=== PATIENT | female | born 1985 | race Caucasian/White ===

== ENCOUNTER 2017-07-29 16:18 | Emergency (ER) | payer BC, OTHER ==
[2017-07-29] MEDS ORDERED: NA CHLORIDE 0.9% 1,000 ML ONE (17:22)
[2017-07-29] MEDS ORDERED: FAMOTIDINE 20 MG TAB ONE (17:22)
[2017-07-29] MEDS ORDERED: MORPHINE 4 MG/ML SYR ONE (17:22)
[2017-07-29] MEDS ORDERED: ONDANSETRON 4 MG/2 ML VIAL ONE ×2 (17:23→19:02)
[2017-07-29 17:44] LABS: Absolute Lymphocytes (CBC) 1.5 K/uL (0.7-4.9); Absolute Monocytes 0.4 K/uL (0.1-1.3); Absolute Neutrophil 8.8 K/uL (1.8-8.0); Basophils % 0.2 % (0-1.3); Eosinophils % 1.5 % (0-4.4); Lymphocytes % 13.5 % (15.3-44.8); MCH 29.7 pg (27.0-35.0); MCV 88.6 fL (80-100); MPV 8.8 fL (7.6-11.3); Monocytes % 3.9 % (3.3-12.3); RBC Red Blood Cell Count 5.42 M/uL (3.86-4.86)
[2017-07-29 17:56] LABS: Glucose Level 91 mg/dL (65-120); Lipase 18 U/L (22-51)
[2017-07-29 17:59] LABS: Urine Blood TRACE (NEG); Urine Glucose NEGATIVE (NEG); Urine Protein TRACE (NEG)
[2017-07-29 18:01] LABS: Urine Bacteria <20 /HPF (<20); Urine Culture Reflex Order NOT NEEDED; Urine RBC <5 /HPF (NONE SEEN)
[2017-07-29 18:02] LABS: ALT/SGPT 11 IU/L (10-60); AST/SGOT 13 IU/L (10-42); Albumin 4.3 g/dL (3.2-5.5); Alkaline Phosphatase 68 IU/L (42-121); BUN Blood Urea Nitrogen 7 mg/dL (6-20); Bilirubin Direct 0.2 mg/dL (0-0.2); Bilirubin Total 1.6 mg/dL (0.3-1.2); Protein, Total 7.5 g/dL (6.0-8.3)
[2017-07-29 18:05] LABS: Bicarbonate 25 mEq/L (21-31); Sodium Level 137 mEq/L (135-145)
[2017-07-29 18:08] LABS: Potassium 2.9 mEq/L (3.6-5.0)
[2017-07-29] MEDS ORDERED: NS KCL 20MEQ 1,000 ML IV ONE (18:13)
[2017-07-29] MEDS ORDERED: POTASSIUM CL SA 10 MEQ TAB PO ONE (18:13)
--- NOTE | 2017-07-29 18:41 | RAD REPORT ---
EXAM DESCRIPTION: CT - Abdomen Pelvis W Contrast - 07/29/2017 6:26 pm CLINICAL HISTORY: Abdominal pain. Nausea and vomiting since Thursday COMPARISON: None. TECHNIQUE: Computed axial tomography of the abdomen and pelvis was obtained. 100 cc Isovue-300 is ad ministered intravenously. Oral contrast was given. All CT scans are performed using dose optimization technique as appropriate and may include automated exposure control or mA/KV adjustment according to patient size. FINDINGS: The liver, spleen, pancreas, adrenals and kidneys appear unremarkable. The appendix is normal caliber. There is no evidence of diverticulitis Fluid is present within nondilated large and small bowel. Air is present within the vagina. A hysterectomy has been performed IMPRESSION: Fluid within nondilated large and small bowel bowel may be secondary to an enteritis. Air within the vagina often is insignificant. It can be associated with infection and should be corre lated clinically
--- NOTE | 2017-07-29 18:59 | EDPHYS ---
Physician Documentation [facility] Name: Cheryl Pozo Age: 32 yrs Sex: Female : 1985 Arrival Date: 07/29/2017 Time: 16:22 Bed 7 Private MD: None, None ED Physician Shahab Calderon HPI: 07/29 18:42 This 32 yrs old Female presents to ER via Ambulatory with complaints of kdr Vomiting/Diarrhea, Abdominal Pain. 18:42 The patient presents to the emergency department with nausea, that is moderate, kdr vomiting, that is intermittent, diarrhea, that is intermittent, abdominal pain, of the epigastric area, right upper quadrant and left upper quadrant, described as achy, burning, crampy, intermittent, vague,\E\ waxing and waning, and does not radiate. Onset: The symptoms/episode began/occurred suddenly, Since the weekend some time. The patient did have a steak on Thursday for mothers day but has had n/v/d since then and has been unable to keep her regular medications down. Possible causes: unknown. The symptoms are aggravated by food , The symptoms are alleviated by nothing. Associated signs and symptoms: Pertinent positives: abdominal pain, diarrhea, nausea, vomiting. Severity of symptoms: At their worst the symptoms were moderate severe incapacitating this morning, in the emergency department the symptoms have improved mildly. The patient has not experienced similar symptoms in the past. The patient has not recently seen a physician. 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 - Social history:: Smoking status: Patient uses tobacco products, denies chronic smoking, but will smoke occasionally. ROS: 18:42 Constitutional: Negative for fever, chills, and weight loss, Eyes: Negative for injury, kdr pain, redness, and discharge, ENT: Negative for injury, pain, and discharge, Neck: Negative for injury, pain, and swelling, Cardiovascular: Negative for chest pain, palpitations, and edema, Respiratory: Negative for shortness of breath, cough, wheezing, and pleuritic chest pain, Back: Negative for injury and pain, : Negative for injury, bleeding, discharge, and swelling, MS/Extremity: Negative for injury and deformity, Skin: Negative for injury, rash, and discoloration, Neuro: Negative for headache, weakness, numbness, tingling, and seizure activity. Psych: Negative for depression, anxiety, suicide ideation, homicidal ideation, and hallucinations, Allergy/Immunology: Negative for hives, rash, and allergies, Endocrine: Negative for neck swelling, polydipsia, polyuria, polyphagia, and marked weight changes, Hematologic/Lymphatic: Negative for swollen nodes, abnormal bleeding, and unusual bruising. 18:42 Abdomen/GI: Positive for abdominal pain, nausea, vomiting, and diarrhea, abdominal cramps, Negative for constipation, abdominal distension, anorexia, dysphagia, hematemesis, black/tarry stool, rectal pain, rectal bleeding, bowel incontinence. Exam: 18:42 Constitutional: This is a well developed, well nourished patient who is awake, alert, kdr and in no acute distress. Head/Face: Normocephalic, atraumatic. Eyes: Pupils equal round and reactive to light, extra-ocular motions intact. Lids and lashes normal. Conjunctiva and sclera are non-icteric and not injected. Cornea within normal limits. Periorbital areas with no swelling, redness, or edema. Neck: Trachea midline, no thyromegaly or masses palpated, and no cervical lymphadenopathy. Supple, full range of motion without nuchal rigidity, or vertebral point tenderness. No Meningismus. Chest/axilla: Normal chest wall appearance and motion. Nontender with no deformity. No lesions are appreciated. Cardiovascular: Regular rate and rhythm with a normal S1 and S2. No gallops, murmurs, or rubs. Normal PMI, no JVD. No pulse deficits. Respiratory: Lungs have equal breath sounds bilaterally, clear to auscultation and percussion. No rales, rhonchi or wheezes noted. No increased work of breathing, no retractions or nasal flaring. Back: No spinal tenderness. No costovertebral tenderness. Full range of motion. Skin: Warm, dry with normal turgor. Normal color with no rashes, no lesions, and no evidence of cellulitis. MS/ Extremity: Pulses equal, no cyanosis. Neurovascular intact. Full, normal range of motion. Neuro: Awake and alert, GCS 15, oriented to person, place, time, and situation. Cranial nerves II-XII grossly intact. Motor strength 5/5 in all extremities. Sensory grossly intact. Cerebellar exam normal. Normal gait. Psych: Awake, alert, with orientation to person, place and time. Behavior, mood, and affect are within normal limits. Vital Signs: 16:45 BP 97 / 79; Pulse 132; Resp 21; Temp 97.8; Pulse Ox 98% on R/A; Weight 63.5 kg; Height aj 5 ft. 3 in. (160.02 cm); Pain 8/10; 18:00 BP 119 / 86; Pulse 88; Resp 16; Pulse Ox 100% ; jl7 18:30 BP 119 / 85; Pulse 90; Resp 16; Pulse Ox 99% ; jl7 18:40 BP 127 / 85; Pulse 85; Resp 16; Pulse Ox 100% ; jl7 19:32 Pulse 100; Resp 18; Pulse Ox 100% on R/A; Pain 0/10; mg2 16:45 Body Mass Index 24.80 (63.50 kg, 160.02 cm) aj MDM: 18:59 Patient medically screened. kdr 19:03 Data reviewed: vital signs, nurses notes, lab test result(s), radiologic studies. kdr Counseling: I had a detailed discussion with the patient and/or guardian regarding: the historical points, exam findings, and any diagnostic results supporting the discharge/admit diagnosis, lab results, radiology results, the need for outpatient follow up. ED course: The patient was feeling much better and able to keep PO fluids down. 07/29 17:09 Order name: Basic Metabolic Panel; Complete Time: 18:52 kdr 07/29 17:09 Order name: CBC with Diff; Complete Time: 18:52 kdr 07/29 17:09 Order name: Creatinine for Radiology; Complete Time: 18:52 kdr 07/29 17:09 Order name: Hepatic Function; Complete Time: 18:52 kdr 07/29 17:09 Order name: Lipase; Complete Time: 18:52 kdr 07/29 17:09 Order name: Urine Microscopic Only; Complete Time: 18:52 kdr 07/29 17:09 Order name: CT Abd/Pelvis - W/Contrast; Complete Time: 18:52 kdr 07/29 17:46 Order name: Urine Dipstick--Ancillary (enter results); Complete Time: 18:52 em1 07/29 17:46 Order name: Urine --Ancillary (enter results); Complete Time: 18:52 em1 07/29 17:09 Order name: IV Saline Lock; Complete Time: 17:46 kdr 07/29 17:09 Order name: Labs collected and sent; Complete Time: 17:46 kdr 07/29 17:09 Order name: Urine Dipstick-Ancillary (obtain specimen); Complete Time: 17:44 kdr 07/29 17:09 Order name: Misc. Order: Few ice chips; Complete Time: 17:46 kdr Administered Medications: 17:35 Drug: Pepcid 20 mg Route: PO; jl7 18:39 Follow up: Response: No adverse reaction jl7 17:36 Drug: NS 0.9% 1000 ml Route: IV; Rate: 1 bolus; Site: right antecubital; jl7 18:20 Follow up: Response: No adverse reaction; IV Status: Completed infusion jl7 17:36 Drug: Zofran 4 mg Route: IVP; Site: right antecubital; jl7 17:45 Follow up: Response: No adverse reaction; Nausea is decreased jl7 17:38 Drug: morphine 2 mg Route: IVP; Site: right antecubital; jl7 18:39 Follow up: Response: No adverse reaction; Pain is decreased jl7 17:44 CANCELLED (Other Intervention Used): Pepcid 20 mg IVP once jl7 18:22 Not Given (Other Intervention Used): NS 0.9% 1000 ml IV at 1 bolus Per protocol; 1000 jl7 mL bolus 18:22 Drug: Potassium Chloride 40 mEq Route: PO; jl7 18:39 Follow up: Response: No adverse reaction jl7 18:30 Drug: Potassium Chloride 20 mEq Route: IV; Rate: calculated rate; Site: right jl7 antecubital; 20:01 Follow up: Response: No adverse reaction; IV Status: Completed infusion mg2 19:08 Drug: LevaQUIN 500 mg Route: PO; mg2 20:00 Follow up: Response: No adverse reaction mg2 19:08 Drug: Zofran 4 mg Route: IVP; Site: right antecubital; mg2 19:59 Follow up: Response: No adverse reaction; Nausea is decreased mg2 19:09 Drug: LoMOTIL 2 tabs Route: PO; mg2 20:00 Follow up: Response: No adverse reaction; Other; diarrhea decreased mg2 19:09 Drug: Flagyl 500 mg Route: PO; mg2 20:00 Follow up: Response: No adverse reaction mg2 Disposition: 07/29/17 18:59 Discharged to Home. Impression: Diarrhea, unspecified, Vomiting, Abdominal and pelvic pain, Hypokalemia. - Condition is Stable. - Discharge Instructions: Potassium Content of Foods, Nausea and Vomiting, Liob-bq-Occx, Abdominal Pain, Adult, Itjl-bt-Doci, Hypokalemia. - Prescriptions for Bentyl 20 mg Oral Tablet - take 1 tablet by ORAL route every 6 hours As needed; 20 tablet. Cipro 500 mg Oral Tablet - take 1 tablet by ORAL route every 12 hours for 10 days; 20 tablet. Flagyl 500 mg Oral Tablet - take 1 tablet by ORAL route every 6 hours for 10 days; 40 tablet. Pepcid 20 mg Oral Tablet - take 1 tablet by ORAL route every 12 hours for 5 days; 10 tablet. Xanax 1 mg Oral Tablet - take 1 tablet by ORAL route every 8 hours As needed; 6 tablet. Tramadol 50 mg Oral Tablet - take 1 tablet by ORAL route every 8 hours as needed; 12 tablet. Lomotil 2.5- 0.025 mg Oral Tablet - take 1 tablet by ORAL route every 6 hours As needed; 20 tablet. - Medication Reconciliation Form, Thank You Letter, Antibiotic Education, Prescription Opioid Use form. - Follow up: Private Physician; When: 2 - 3 days; Reason: If symptoms return, Further diagnostic work-up, Recheck today's complaints, Continuance of care, Re-evaluation by your physician. - Problem is new. - Symptoms have improved. Signatures: Dispatcher [employer] Annie Bishop RN Shahab Grossman MD MD kdr Leal, Jahala, RN RN jl7 Arden Bonds RN RN mg2 Corrections: (The following items were deleted from the chart) 17:44 17:09 Pepcid 20 mg IVP once ordered. chai jl7 20:02 18:59 07/29/2017 18:59 Discharged to Home. Impression: Diarrhea, unspecified; Vomiting; mg2 Abdominal and pelvic pain; Hypokalemia. Condition is Stable. Forms are Medication Reconciliation Form, Thank You Letter, Antibiotic Education, Prescription Opioid Use. Follow up: Private Physician; When: 2 - 3 days; Reason: If symptoms return, Further diagnostic work-up, Recheck today's complaints, Continuance of care, Re-evaluation by your physician. Problem is new. Symptoms have improved. kdr
--- NOTE | 2017-07-29 18:59 | ER ---
Nurse's Notes [facility] Name: Cheryl Pozo Age: 32 yrs Sex: Female : 1985 Arrival Date: 07/29/2017 Time: 16:22 Bed 7 Private MD: None, None Diagnosis: Diarrhea, unspecified;Vomiting;Abdominal and pelvic pain;Hypokalemia Presentation: 07/29 16:43 Presenting complaint: Patient states: N/V/D since Thursday. Transition of care: patient aj was not received from another setting of care. Onset of symptoms was July 27, 2017. Care prior to arrival: None. 16:43 Method Of Arrival: Ambulatory aj 16:43 Acuity: JOSEPH 2 aj 17:51 Initial Sepsis Screen: Does the patient meet any 2 criteria? No. Patient's initial ae1 sepsis screen is negative. Does the patient have a suspected source of infection? No. Patient's initial sepsis screen is negative. Triage Assessment: 16:45 General: Appears in no apparent distress. uncomfortable, Behavior is calm, cooperative, aj appropriate for age. Pain: Complains of pain in epigastric area Pain currently is 7 out of 10 on a pain scale. Neuro: Level of Consciousness is awake, alert, obeys commands, Oriented to person, place, time, situation, Appropriate for age. Respiratory: Airway is patent Respiratory effort is even, unlabored, Respiratory pattern is regular, symmetrical. GI: Reports upper abdominal pain, diarrhea, nausea, vomiting. Derm: Skin is intact, is healthy with good turgor, Skin is pink, warm \T\ dry. normal. 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 - Social history:: Smoking status: Patient uses tobacco products, denies chronic smoking, but will smoke occasionally. Screenin:50 Abuse screen: Denies threats or abuse. Nutritional screening: No deficits noted. ae1 Tuberculosis screening: No symptoms or risk factors identified. Fall Risk None identified. Assessment: 17:00 Pain: Complains of pain in abdomen. Neuro: Level of Consciousness is awake, alert, ae1 obeys commands, Oriented to person, place, time, situation. Cardiovascular: Heart tones S1 S2 present Patient's skin is warm and dry. Respiratory: Airway is patent Respiratory effort is even, unlabored, Respiratory pattern is regular, symmetrical, Breath sounds are clear bilaterally. GI: Abdomen is round Bowel sounds present X 4 quads. hyperactive in right lower quadrant and left lower quadrant. : No signs and/or symptoms were reported regarding the genitourinary system. EENT: No signs and/or symptoms were reported regarding the EENT system. Derm: Skin is pink, warm \T\ dry. Musculoskeletal: No signs and/or symptoms reported regarding the musculoskeletal system. 17:00 General: Appears in no apparent distress. comfortable, Behavior is calm, cooperative. ae1 17:00 GI: Reports nausea, vomiting. ae1 17:48 Reassessment: Pt finished drinking oral contrast, CT notified. jl7 18:05 Reassessment: Potassium 2.9, provider notified, see MAR for orders. Provider ordered to [facility] notify CT not to wait on oral contrast. CT notified to go ahead and get the pt at this time. 19:32 Reassessment: Patient appears in no apparent distress at this time. Patient and/or mg2 family updated on plan of care and expected duration. Pain level reassessed. Patient is alert, oriented x 3, equal unlabored respirations, skin warm/dry/pink. Vital Signs: 16:45 BP 97 / 79; Pulse 132; Resp 21; Temp 97.8; Pulse Ox 98% on R/A; Weight 63.5 kg; Height aj 5 ft. 3 in. (160.02 cm); Pain 8/10; 18:00 BP 119 / 86; Pulse 88; Resp 16; Pulse Ox 100% ; jl7 18:30 BP 119 / 85; Pulse 90; Resp 16; Pulse Ox 99% ; jl7 18:40 BP 127 / 85; Pulse 85; Resp 16; Pulse Ox 100% ; jl7 19:32 Pulse 100; Resp 18; Pulse Ox 100% on R/A; Pain 0/10; mg2 16:45 Body Mass Index 24.80 (63.50 kg, 160.02 cm) aj ED Course: 16:22 Patient arrived in ED. mr 16:23 None, None is Private Physician. mr 16:43 Triage completed. aj 16:45 Arm band placed on right wrist. Patient placed in an exam room. aj 16:47 Shahab Calderon MD is Attending Physician. kdr 17:00 Bed in low position. Call light in reach. Side rails up X 1. Pulse ox on. NIBP on. Warm ae1 blanket given. 17:00 Initial lab(s) drawn, by me. Inserted saline lock: 20 gauge in right antecubital area, jb1 using aseptic technique. Blood collected. 17:17 Kapil Julien, RN is Primary Nurse. ae1 18:[address] vm2 18:25 CT Abd/Pelvis - W/Contrast In Process Unspecified. EDMS 19:59 No provider procedures requiring assistance completed. IV discontinued, intact, mg2 bleeding controlled, No redness/swelling at site. Pressure dressing applied. Administered Medications: 17:35 Drug: Pepcid 20 mg Route: PO; jl7 18:39 Follow up: Response: No adverse reaction jl7 17:36 Drug: NS 0.9% 1000 ml Route: IV; Rate: 1 bolus; Site: right antecubital; jl7 18:20 Follow up: Response: No adverse reaction; IV Status: Completed infusion jl7 17:36 Drug: Zofran 4 mg Route: IVP; Site: right antecubital; jl7 17:45 Follow up: Response: No adverse reaction; Nausea is decreased jl7 17:38 Drug: morphine 2 mg Route: IVP; Site: right antecubital; jl7 18:39 Follow up: Response: No adverse reaction; Pain is decreased jl7 17:44 CANCELLED (Other Intervention Used): Pepcid 20 mg IVP once jl7 18:22 Not Given (Other Intervention Used): NS 0.9% 1000 ml IV at 1 bolus Per protocol; 1000 jl7 mL bolus 18:22 Drug: Potassium Chloride 40 mEq Route: PO; jl7 18:39 Follow up: Response: No adverse reaction jl7 18:30 Drug: Potassium Chloride 20 mEq Route: IV; Rate: calculated rate; Site: right jl7 antecubital; 20:01 Follow up: Response: No adverse reaction; IV Status: Completed infusion mg2 19:08 Drug: LevaQUIN 500 mg Route: PO; mg2 20:00 Follow up: Response: No adverse reaction mg2 19:08 Drug: Zofran 4 mg Route: IVP; Site: right antecubital; mg2 19:59 Follow up: Response: No adverse reaction; Nausea is decreased mg2 19:09 Drug: LoMOTIL 2 tabs Route: PO; mg2 20:00 Follow up: Response: No adverse reaction; Other; diarrhea decreased mg2 19:09 Drug: Flagyl 500 mg Route: PO; mg2 20:00 Follow up: Response: No adverse reaction mg2 Intake: Outcome: 18:59 Discharge ordered by . kdr 20:01 Discharged to home ambulatory, with family. mg2 20:01 Condition: stable 20:01 Discharge instructions given to patient, family, Instructed on discharge instructions, follow up and referral plans. Demonstrated understanding of instructions, follow-up care, medications, Prescriptions given X 7 20:02 Patient left the ED. mg2 Signatures: Dispatcher [employer] EDMS Bryant Werner jb1 Annie Adams RN RN aj Rittger, Kevin, MD MD kdr Rivera, Maria mr Kapil Julien RN RN ae1 Mirta Braga RN RN jl7 Allison Alicea 2 Arden Bonds, CAROLYN RN mg2 Corrections: (The following items were deleted from the chart) 18:10 17:00 General: Appears in no apparent distress. comfortable, Behavior is calm, ae1 cooperative, ae1 18:45 18:41 Reassessment: brianne decker
[2017-07-29] MEDS ORDERED: metroNIDAZOLE 500 MG TABLET ONE (19:01)
[2017-07-29] MEDS ORDERED: levoFLOXacin 500 MG TAB ONE (19:02)
[2017-07-29] MEDS ORDERED: DIPHENOX/ATROP SULF 1 TAB PO ONE (19:02)
== END 2017-07-29 20:02 | disposition home or self-care (01) ==
LOC: ER 16:18
DX: E87.6 Hypokalemia (principal); R11.10 Vomiting, unspecified; R19.7 Diarrhea, unspecified; F90.9 Attention-deficit hyperactivity disorder, unspecified type; Z72.0 Tobacco use
CPT/HCPCS: 36415; 74177; 80048; 80076; 81003; 81015; 81025; 83690; 85025; 96361; 96365; 96366; 96375; 99284; J2405; J7030; Q9967

== ENCOUNTER 2017-10-26 15:43 | Emergency (ER) | payer BC ==
--- NOTE | 2017-10-26 17:27 | RAD REPORT ---
EXAM DESCRIPTION: Erin Chicas (2 Views)10/26/2017 5:22 pm CLINICAL HISTORY: Cough COMPARISON: None FINDINGS: The lungs appear clear of acute infiltrate. The heart is normal size IMPRESSION: No acute abnormalities displayed
--- NOTE | 2017-10-26 17:56 | ER ---
Nurse's Notes [facility] Name: Cheryl Pozo Age: 32 yrs Sex: Female : 1985 Arrival Date: 10/26/2017 Time: 15:45 Bed Treatment Private MD: Out, [facility] Diagnosis: Acute upper respiratory infection, unspecified Presentation: 10/26 16:08 Presenting complaint: Patient states: Started feeling bad for a week now, sore throat, jl7 weakness, coughing. Transition of care: patient was not received from another setting of care. Onset of symptoms was October 20, 2017. Risk Assessment: Do you want to hurt yourself or someone else? Patient reports no desire to harm self or others. Initial Sepsis Screen: Does the patient meet any 2 criteria? No. Patient's initial sepsis screen is negative. Does the patient have a suspected source of infection? No. Patient's initial sepsis screen is negative. Care prior to arrival: None. 16:08 Method Of Arrival: Ambulatory [facility] 16:08 Acuity: JOSEPH 4 jl7 Triage Assessment: 16:10 General: Appears in no apparent distress. uncomfortable, Behavior is calm, cooperative, jl7 appropriate for age. Pain: Complains of pain in headache/neck Pain does not radiate. Pain currently is 5 out of 10 on a pain scale. Quality of pain is described as throbbing. Neuro: Level of Consciousness is awake, alert, obeys commands, Oriented to person, place, time. Cardiovascular: Patient's skin is warm and dry. Respiratory: Airway is patent Respiratory effort is even, unlabored, Respiratory pattern is regular, symmetrical. GI: Reports nausea, Patient currently denies diarrhea, vomiting. : No signs and/or symptoms were reported regarding the genitourinary system. Derm: Skin is pink, warm \T\ dry. Musculoskeletal: No signs and/or symptoms reported regarding the musculoskeletal system. 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 - Social history:: Smoking status: Patient uses tobacco products, denies chronic smoking, but will smoke occasionally. - Ebola Screening: : No symptoms or risks identified at this time. Vital Signs: 16:10 BP 117 / 76; Pulse 99; Resp 22 S; Temp 97.8(O); Pulse Ox 100% on R/A; Weight 61.23 kg jl7 (R); Height 5 ft. 2 in. (157.48 cm) (R); Pain 5/10; 16:10 Body Mass Index 24.69 (61.23 kg, 157.48 cm) jl7 ED Course: 15:45 Patient arrived in ED. sb2 15:45 Out, of Town is Private Physician. sb2 16:03 Mirta Braga, RN is Primary Nurse. jl7 16:08 [facility]C [facility]. kb 16:08 Brando Page MD is Attending Physician. kb 16:09 Triage completed. jl7 16:10 Arm band placed on right wrist. jl7 16:46 Initial lab(s) drawn, by ct, sent to lab. Strep swab sent to lab. Inserted saline lock: iw 20 gauge in left antecubital area, using aseptic technique. Blood collected. 17:22 Chest Pa And Lat (2 Views) XRAY In Process Unspecified. EDMS Administered Medications: No medications were administered Outcome: 17:56 Discharge ordered by . kb 18:30 Patient left the ED. iw Signatures: Dispatcher [employer] EDMS Veronica Rico FNP-C FNP-Ckb Williams, Irene, RN RN iw Mirta Braga, RN RN jl7 Carly Huntley sb2
--- NOTE | 2017-10-26 17:56 | EDPHYS ---
Physician Documentation [facility] Emergency Department Name: Cheryl Pozo Age: 32 yrs Sex: Female : 1985 Arrival Date: 10/26/2017 Time: 15:45 Bed Treatment Private MD: Out, [facility] ED Physician Brando Page HPI: 10/26 17:27 This 32 yrs old Female presents to ER via Ambulatory with complaints of Flu kb Symptoms. 17:27 The patient or guardian reports cough, that is intermittent, described as moderate, kb with no sputum, flu symptoms, low-grade fever, myalgias. Onset: The symptoms/episode began/occurred 1 week(s) ago. Severity of symptoms: At their worst the symptoms were mild, moderate, in the emergency department the symptoms are unchanged. Modifying factors: The symptoms are alleviated by nothing, the symptoms are aggravated by nothing. Associated signs and symptoms: Pertinent positives: fever, rhinorrhea, sore throat, Pertinent negatives: chest pain, diarrhea, ear ache, nausea, vomiting. The patient has not experienced similar symptoms in the past. The patient has not recently seen a physician. 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 - Social history:: Smoking status: Patient uses tobacco products, denies chronic smoking, but will smoke occasionally. - Ebola Screening: : No symptoms or risks identified at this time. ROS: 17:24 Cardiovascular: Negative for chest pain, palpitations, and edema, Abdomen/GI: Negative kb for abdominal pain, nausea, vomiting, diarrhea, and constipation, Back: Negative for injury and pain, : Negative for injury, bleeding, discharge, and swelling, MS/Extremity: Negative for injury and deformity, Skin: Negative for injury, rash, and discoloration, Neuro: Negative for headache, weakness, numbness, tingling, and seizure. 17:24 Constitutional: Positive for body aches, chills, fatigue, fever, malaise, Negative for poor PO intake, weight loss. 17:24 ENT: Positive for rhinorrhea, sinus congestion, sinus pain, sore throat. 17:24 Respiratory: Positive for cough, Negative for dyspnea on exertion, hemoptysis, orthopnea, pleurisy, shortness of breath, sputum production, wheezing. Exam: 17:24 Constitutional: This is a well developed, well nourished patient who is awake, alert, kb and in no acute distress. Head/Face: Normocephalic, atraumatic. Neck: Trachea midline, no thyromegaly or masses palpated, and no cervical lymphadenopathy. Supple, full range of motion without nuchal rigidity, or vertebral point tenderness. No Meningismus. Chest/axilla: Normal chest wall appearance and motion. Nontender with no deformity. No lesions are appreciated. Cardiovascular: Regular rate and rhythm with a normal S1 and S2. No gallops, murmurs, or rubs. Normal PMI, no JVD. No pulse deficits. Abdomen/GI: Soft, non-tender, with normal bowel sounds. No distension or tympany. No guarding or rebound. No evidence of tenderness throughout. Back: No spinal tenderness. No costovertebral tenderness. Full range of motion. Skin: Warm, dry with normal turgor. Normal color with no rashes, no lesions, and no evidence of cellulitis. MS/ Extremity: Pulses equal, no cyanosis. Neurovascular intact. Full, normal range of motion. Neuro: Awake and alert, GCS 15, oriented to person, place, time, and situation. Cranial nerves II-XII grossly intact. Motor strength 5/5 in all extremities. Sensory grossly intact. Cerebellar exam normal. Normal gait. 17:24 ENT: Posterior pharynx: Airway: normal, no evidence of obstruction, Tonsils: bilaterally enlarged, with erythema, Uvula: normal, midline, swelling, that is mild, erythema, that is mild. 17:24 Respiratory: the patient does not display signs of respiratory distress, Respirations: normal, Breath sounds: rhonchi, that are mild, are heard in the left posterior lower lobe. Vital Signs: 16:10 BP 117 / 76; Pulse 99; Resp 22 S; Temp 97.8(O); Pulse Ox 100% on R/A; Weight 61.23 kg jl7 (R); Height 5 ft. 2 in. (157.48 cm) (R); Pain 5/10; 16:10 Body Mass Index 24.69 (61.23 kg, 157.48 cm) jl7 MDM: 16:08 Patient medically screened. kb 16:15 Patient medically screened. kb 17:27 Data reviewed: vital signs, nurses notes. Data interpreted: Pulse oximetry: on room air kb is 100 %. Interpretation: normal. 17:52 Counseling: I had a detailed discussion with the patient and/or guardian regarding: the kb historical points, exam findings, and any diagnostic results supporting the discharge/admit diagnosis, lab results, radiology results, the need for outpatient follow up, a family practitioner, to return to the emergency department if symptoms worsen or persist or if there are any questions or concerns that arise at home. 10/26 16:24 Order name: Archer Screen Profile; Complete Time: 17:51 kb 10/26 16:24 Order name: Strep; Complete Time: 17:12 kb 10/26 16:24 Order name: Chest Pa And Lat (2 Views) XRAY; Complete Time: 17:28 kb 10/26 17:12 Order name: Throat Culture EDMS Administered Medications: No medications were administered Disposition: 10/27 11:36 Co-signature as Attending Physician, Brando Page MD I agree with the assessment and tiera plan of care. Disposition: 10/26/17 17:56 Discharged to Home. Impression: Acute upper respiratory infection, unspecified. - Condition is Stable. - Discharge Instructions: Upper Respiratory Infection, Adult, [id number]. - Prescriptions for Prednisone 20 mg Oral Tablet - take 1 tablet by ORAL route once daily for 5 days; 5 tablet. Tessalon Perles 100 mg Oral Capsule - take 1 capsule by ORAL route every 8 hours As needed; 15 capsule. - Medication Reconciliation Form, Thank You Letter, Antibiotic Education, Prescription Opioid Use, Work release form form. - Follow up: Emergency Department; When: As needed; Reason: Worsening of condition. Follow up: Private Physician; When: 2 - 3 days; Reason: Recheck today's complaints, Continuance of care, Re-evaluation by your physician. Signatures: Dispatcher [facility] EDMA Veronica Rico, TANYA-Mae MARTÍNEZ-Brando Rankin MD MD cha Williams, Irene, RN RN iw Mirta Braga RN RN jl7 Corrections: (The following items were deleted from the chart) 10/26 18:30 17:56 10/26/2017 17:56 Discharged to Home. Impression: Acute upper respiratory iw infection, unspecified. Condition is Stable. Forms are Medication Reconciliation Form, Thank You Letter, Antibiotic Education, Prescription Opioid Use. Follow up: Emergency Department; When: As needed; Reason: Worsening of condition. Follow up: Private Physician; When: 2 - 3 days; Reason: Recheck today's complaints, Continuance of care, Re-evaluation by your physician. kb
== END 2017-10-26 18:30 | disposition home or self-care (01) ==
LOC: ER 15:43
DX: J06.9 Acute upper respiratory infection, unspecified (principal); F90.9 Attention-deficit hyperactivity disorder, unspecified type; Z72.0 Tobacco use
CPT/HCPCS: 36415; 71046; 86308; 87070; 87081; 99283